=== PATIENT | female | born 1960 | race Caucasian/White ===

== ENCOUNTER 2017-10-30 07:06 | Day surgery (SDC) | payer OTHER ==
[2017-10-30] MEDS ORDERED: MIDAZOLAM 1 MG/ML 2 ML INJ ×2 (09:19)
[2017-10-30] MEDS ORDERED: FENTAnyl 50 MCG/ML VIAL (09:19)
== END 2017-10-30 10:08 | disposition home or self-care (01) ==
LOC: GIL 07:06
DX: Z12.11 Encounter for screening for malignant neoplasm of colon (principal); D12.5 Benign neoplasm of sigmoid colon
CPT/HCPCS: 45380; 88305